=== PATIENT | female | born 1990 | race African-American/Black ===

== ENCOUNTER → 2016-10-05 | Outpatient (CLI) | payer MEDICAID | LOC: COL.PUL 10:00 | DX: R06.02 Shortness of breath (principal) ==

== ENCOUNTER → 2018-05-17 | Outpatient (CLI) | payer MEDICAID | LOC: ZCOL.LAB 14:10 | DX: L02.211 Cutaneous abscess of abdominal wall (principal) ==

== ENCOUNTER → 2018-11-13 | Outpatient (CLI) | payer BC, MEDICAID | LOC: ZCOL.LAB 19:29 | DX: Z01.89 Encounter for other specified special examinations (principal) ==